=== PATIENT | female | born 1955 | race Two or more races ===

== ENCOUNTER 2025-07-23 06:00 | Day surgery (SDC) | payer OTHER ==
[2025-07-20 12:41] VITALS: BP 127/79
[~2025-07-23] VITALS: Ht 157.5 cm; Wt 76.2 kg
[~2025-07-23 06:00] MED LIST: ATORVASTATIN CA10 MG; GLIPIZIDE XL10 MG PO; METFORMIN HCL1000 M2 PO; ZESTRIL2.5 MG
[2025-07-23] MEDS ORDERED: CHLORHEXIDINE GLUCONATE 120 ML BOTTLE TOP ONE (09:45)
[2025-07-23] MEDS ORDERED: CEFAZOLIN SODIUM 1,000 MG VIAL IV ONE (09:45)
== END 2025-07-23 16:00 | disposition home or self-care (01) ==
LOC: CIR.AMB 06:00
PROVIDERS: ATTEND Surgery
DX: D48.62 Neoplasm of uncertain behavior of left breast (principal); D24.2 Benign neoplasm of left breast; R92.1 Mammographic calcification found on diagnostic imaging of breast; N60.82 Other benign mammary dysplasias of left breast